=== PATIENT | female | born 1970 | race Caucasian/White ===

== ENCOUNTER 2016-08-05 07:28 | Day surgery (SDC) | payer OTHER ==
[2016-08-05 07:33] VITALS: TEMP 97.9
--- NOTE | 2016-08-05 07:37 | EDPHY ---
H & P Stated Complaint: Intermittent CP for "awhile",worse past 2 wks,under a lot of stress Time Seen by Provider: 08/05/16 07:37 - Personal History LMP (Females 10-55): 1-7 Days Ago Current Tetanus Diphtheria and Acellular Pertussis (TDAP): No - Medical/Surgical History Other PMH: neg per pt - Social History Smoking Status: Never smoked Constitutional: Initial Vital Signs Temperature (C) 36.6 C 08/05/16 07:29 Heart Rate 78 08/05/16 07:29 Respiratory Rate 18 08/05/16 07:29 Blood Pressure 180/113 H 08/05/16 07:29 O2 Sat (%) 98 08/05/16 07:29 O2 Delivery Mode Room Air Allergies/Adverse Reactions: No Known Allergies Allergy (Unverified 08/05/16 07:33) Home Medications: Medication Instructions Recorded NK [No Known Home Meds] 08/05/16 Medical Decision Making ED Course/Re-evaluation: CHIEF COMPLAINT: Chest pressure. HISTORY OF PRESENT ILLNESS: This is a 46-year-old otherwise healthy female who presents with chest pressure for the past few days. The pressure radiates through to her back (between the shoulder blades) and she has left upper arm soreness. The pain has been constant. She denies alleviating or provoking factors. She denies shortness of breath. She feels that she has had similar symptoms before but they have always resolved on their own. Her father had heart disease and had a heart attack at 42. She has been under a lot of personal stress lately. REVIEW OF SYSTEMS: A 10 point review of systems was performed and is negative with the exception of the elements mentioned in the history of present illness. PHYSICAL EXAM: HR, BP, O2 Sat, RR. Temp noted General Appearance: Alert, well hydrated, appropriate, and non-toxic appearing. Head: Atraumatic without scalp tenderness or obvious injury Eyes: Pupils equal, round, reactive to light and accommodation, EOMI, no trauma , no injection. Ears: Clear bilaterally, no perforation, normal landmarks Nose: Atraumatic, no rhinorrhea, clear. Throat: There is no erythema or exudates, no lesions, normal tonsils, mucus membranes moist. Neck: Supple, 2+ carotid upstroke, nontender, no lymphadenopathy. Respiratory: No retractions, no distress, no wheezes, and no accessory muscle use. Lungs are clear to auscultation bilaterally. Cardiovascular: Regular rate and rhythm, no murmurs, rubs, or gallops. Bilateral carotid, radial, dorsalis pedis, and posterior tibial pulses intact. Good capillary refill all extremities. Gastrointestinal: Abdomen is soft, nontender, non-distended, no masses, no rebound, no guarding, no peritoneal signs. Musculoskeletal: Normal active ROM of all extremities, atraumatic. Neurological: Alert, appropriate, and interactive. The patient has normal DTRs and non-focal cranial nerves, motor, sensory, and cerebellar exam. Skin: No rashes, good turgor, no nodules on palpation. Past medical history:Denies. Past surgical history:Denies. Family history:Father had a heart attack at 42. Social history:. DIAGNOSTICS/PROCEDURES/CRITICAL CARE TIME: The 12 lead EKG was interpreted by myself. See hard copy and/or "tracemaster" electronic copy for interpretation. Sinus rhythm, abnormal R wave progression. ST depression in V4. Study: PA and Lateral Chest X-ray Indication: Chest pain Results: I viewed the images myself on the PACS system. The radiologist interpretation per Dr. Ma is: Borderline cardiac silhouette enlargement. DIFFERENTIAL DIAGNOSIS: The differential diagnosis for the patient's chest pain included but was not limited to myocardial ischemia, pulmonary embolus, chest wall pain, pleural inflammation, and pulmonary infectious causes. MEDICAL DECISION MAKING: This is a 46-year-old female who presents with chest pressure for the past few days. This pressure radiates to between her shoulder blades and down her left arm. She has a significant family cardiac history as her father had a heart attack at age 42. Labs will be drawn including troponin. Troponin will be significantly sensitive as the patient has had a few days of unrelenting pain. An EKG was obtained that shows sinus rhythm and abnormal R-wave progression and ST depression in V4. I am concerned this could represent a posterior infarct. Aspirin 324mg PO administered. 0745: I spoke with Dr. Leija, cardiology. I have sent him the patient's EKG. He will establish care with the patient. 0752: Dr. Leija agrees the patient's EKG is abnormal. Stat echocardiogram ordered. Chest x-ray per radiology shows borderline cardiac silhouette enlargement. 0823: I spoke with echocardiogram gwen Nagel after echocardiogram. He has sent the images to Dr. Leija. 0830: I consulted with the cardiology PA in the ED. He will consult with the patient. Patient placed on Nitroglycerin IV drip. 0858: Dr. Leija planning to take the patient to the veterinary laboratory diagnostician at 0930. - Data Points Laboratory Results: Laboratory Results 08/05/16 07:41 08/05/16 07:41 08/05/16 08/05/16 08/05/16 07:41 07:41 07:41 WBC 7.95 10^3/uL 10^3/uL (3.80-9.50) RBC 5.75 10^6/uL H 10^6/uL (4.18-5.33) Hgb 15.6 g/dL g/dL (12.6-16.3) Hct 46.1 % % (38.0-47.0) MCV 80.2 fL L fL (81.5-99.8) MCH 27.1 pg L pg (27.9-34.1) MCHC 33.8 g/dL g/dL (32.4-36.7) RDW 14.6 % % (11.5-15.2) Plt Count 286 10^3/uL 10^3/uL (150-400) MPV 9.1 fL fL (8.7-11.7) Neut % (Auto) 63.3 % % (39.3-74.2) Lymph % (Auto) 25.7 % % (15.0-45.0) [place] % (Auto) 6.2 % % (4.5-13.0) Eos % (Auto) 2.9 % % (0.6-7.6) Baso % (Auto) 1.1 % % (0.3-1.7) Nucleat RBC Rel Count 0.0 % % (0.0-0.2) Absolute Neuts (auto) 5.04 10^3/uL 10^3/uL (1.70-6.50) Absolute Lymphs (auto) 2.04 10^3/uL 10^3/uL (1.00-3.00) Absolute Monos (auto) 0.49 10^3/uL 10^3/uL (0.30-0.80) Absolute Eos (auto) 0.23 10^3/uL 10^3/uL (0.03-0.40) Absolute Basos (auto) 0.09 10^3/uL 10^3/uL (0.02-0.10) Absolute Nucleated RBC 0.00 10^3/uL 10^3/uL (0-0.01) Immature Gran % 0.8 % % (0.0-1.1) Immature Gran # 0.06 10^3/uL 10^3/uL (0.00-0.10) PT 13.9 SEC SEC (12.0-15.0) INR 1.08 (0.83-1.16) APTT 30.6 SEC SEC (23.0-38.0) Sodium 141 mEq/L mEq/L (134-144) Potassium 3.8 mEq/L mEq/L (3.5-5.2) Chloride 109 mEq/L mEq/L (97-110) Carbon Dioxide 21 mEq/l L mEq/l (22-31) Anion Gap 11 mEq/L mEq/L (8-16) BUN 10 mg/dL mg/dL (7-23) Creatinine 0.8 mg/dL mg/dL (0.6-1.0) Estimated GFR > 60 Glucose 96 mg/dL mg/dL (70-100) Calcium 9.3 mg/dL mg/dL (8.5-10.4) Troponin I < 0.012 ng/mL ng/mL (0-0.034) NT-Pro-B Natriuret Pep 133 pg/mL H pg/mL (0-125) Departure - Departure Disposition: To OP Cath/Surgery Clinical Impression: Chest pain Qualifiers: Chest pain type: unspecified Qualified Code(s): R07.9 - Chest pain, unspecified Condition: Fair Referrals: NONE *PRIMARY CARE P,. [Primary Care Provider] - As per Instructions Report Scribed for: Arias Ramey Report Scribed by: Andrea Pang Date of Report: 08/05/16 Time of Report: 07:47
--- NOTE | 2016-08-05 07:44 | CPEKG ---
Heart Rate: 96 RR Interval: 625 P-R Interval: 180 QRSD Interval: 92 QT Interval: 356 QTC Interval: 450 P [place]: 29 QRS [place]: 11 T Wave [place]: 19 EKG Severity - ABNORMAL ECG - EKG Impression: SINUS RHYTHM EKG Impression: ABNRM R PROG, CONSIDER ASMI OR LEAD PLACEMENT Electronically Signed By: Arias Ramey 05-Aug-2016 14:37:01
[2016-08-05] MEDS ORDERED: ASPIRIN 81 MG CHEWABLE TAB ONE (07:45)
[2016-08-05 07:57] LABS: % IMMATURE GRANULYOCYTES 0.8 % (0.0-1.1); ABSOLUTE IMMATURE GRANULOCYTES 0.06 10^3/uL (0.00-0.10); ADD DIFF? NO; ADD MORPH? NO; ADD SCAN? NO; ATYPICAL LYMPHOCYTE FLAG 0 (0-99); FRAGMENT RBC FLAG 0 (0-99); HEMATOCRIT 46.1 % (38.0-47.0); HEMOGLOBIN 15.6 g/dL (12.6-16.3); LEFT SHIFT FLG 0 (0-99); LIPEMIA HEMOLYSIS FLAG 90 (0-99); MEAN CELL HEMOGLOBIN 27.1 pg (27.9-34.1); MEAN CELL HEMOGLOBIN CONCENTR. 33.8 g/dL (32.4-36.7); MEAN CELL VOLUME 80.2 fL (81.5-99.8); MEAN PLATELET VOLUME 9.1 fL (8.7-11.7); PLATELET CLUMPS FLAG 10 (0-99); PLATELET COUNT 286 10^3/uL (150-400); RED BLOOD CELL COUNT 5.75 10^6/uL (4.18-5.33); RED CELL DISTRIBUTION WIDTH 14.6 % (11.5-15.2)
[2016-08-05 08:22] LABS: INR 1.08 (0.83-1.16); PROTIME(PATIENT) 13.9 SEC (12.0-15.0)
[2016-08-05 08:23] LABS: APTT 30.6 SEC (23.0-38.0)
[2016-08-05] MEDS ORDERED: NITROGLYCERIN/D5W 50 MG/250 ML BOTTLE IV ONE (08:35)
[2016-08-05 08:36] LABS: TROPONIN I < 0.012 ng/mL (0-0.034)
[2016-08-05 08:39] LABS: ANION GAP 11 mEq/L (8-16); CALCIUM 9.3 mg/dL (8.5-10.4); CARBON DIOXIDE 21 mEq/l (22-31); CHLORIDE 109 mEq/L (97-110); CREATININE 0.8 mg/dL (0.6-1.0); GLOMERULAR FILTRATION RATE > 60; GLUCOSE 96 mg/dL (70-100); POTASSIUM 3.8 mEq/L (3.5-5.2); SODIUM 141 mEq/L (134-144)
[2016-08-05] MEDS ORDERED: ASPIRIN 81 MG CHEWABLE TAB PO ONE (08:45)
[2016-08-05] MEDS ORDERED: NITROGLYCERIN/DEXTROSE 250 ML IV SCH (08:50)
[2016-08-05] MEDS ORDERED: TEMAZEPAM 15 MG CAP PO PRN (09:02)
[2016-08-05] MEDS ORDERED: DIAZEPAM 5 MG TAB PO ONE (09:02)
[2016-08-05] MEDS ORDERED: NITROGLYCERIN 0.4 MG BTL SL PRN ×2 (09:02→10:14)
[2016-08-05] MEDS ORDERED: ACETAMINOPHEN 325 MG TAB PO PRN (09:02)
[2016-08-05] MEDS ORDERED: diphenhydrAMINE 25 MG CAP PO ONE (09:02)
[2016-08-05] MEDS ORDERED: ASPIRIN EC 325 MG TAB PO ONE (09:02)
[2016-08-05 09:06] VITALS: BP 157/104
--- NOTE | 2016-08-05 09:08 | PDCONSULT ---
Shredder Picker Note: 46 y/o F with 2-3 days of substernal chest pain with radiation to back. Seen an evaluated in ED. Discussed with Dr. Ramey and by phone with Dr. Leija who elects to take to wood and wood products labourer this am. Patient has consented verbally. Official consult will be put in later this am.
[2016-08-05] MEDS ORDERED: LIDOCAINE 1% 30 ML SDV ONE (09:11)
[2016-08-05 09:12] VITALS: PULSE 86; RESP 14
[2016-08-05] MEDS ORDERED: VERAPAMIL 5 MG/2 ML VIAL ONE (09:12)
[2016-08-05] MEDS ORDERED: MIDAZOLAM 2 MG/2 ML VIAL ONE ×2 (09:12→09:48)
[2016-08-05] MEDS ORDERED: HEPARIN 10,000 UNIT/10 ML MDV ONE (09:12)
[2016-08-05] MEDS ORDERED: fentaNYL 100 MCG/2 ML INJ ONE (09:12)
[2016-08-05 09:13] VITALS: O2SAT 97
[2016-08-05] MEDS ORDERED: IOPAMIDOL (ISOVUE-370) 150 ML BTL IV ONE (09:13)
[2016-08-05 09:41] LABS: CHOLESTEROL 189 mg/dL (140-200); CHOLESTEROL/HDL RATIO 4.02 RATIO (1.00-4.44); HIGH DENSITY LIPOPROTEIN 47 mg/dL (40-95); LDL/HDL RATIO 2.34 RATIO (1.00-3.22); LOW DENSITY LIPOPROTEIN 110 mg/dL (70-100); NON-HIGH DENSITY LIPOPROTEIN 142 mg/dL (90-129); TRIGLYCERIDE 160 mg/dL (35-135); VERY LOW DENSITY LIPOPROTEINS 32 mg/dL (8-25)
--- NOTE | 2016-08-05 09:45 | SUROPNOTE ---
[facility] Operative Report - Surgery Date of Procedure: 08/05/16 Indication: This patient is a 46 year old woman, with strong family history of coronary disease, presenting to the emergency department today with 2-3 days of substernal chest pressure radiating to her back and left shoulder to the elbow. The pain has been constant, but is mild in severity. Cole cardiovascular class IV angina. EKG in the emergency department shows poor R wave progression and ST depression in V4. Troponin is negative. Her chest pain was nitroglycerin responsive with nitroglycerin drip. Her presentation is associated with hypertension, 160-190/109 in the emergency department. She has no known history of hypertension, however has not seen a doctor in quite some time. She denies history of hyperlipidemia or diabetes to her knowledge. No stress testing was performed secondary to resting chest pain, which was nitroglycerin responsive. Urgent left heart catheterization indicated secondary to unstable angina. Procedures performed: 1. Left heart catheterization with left ventricular and selective coronary angiography. Description of procedure: Description, risks, benefits and alternatives were discussed in detail. Informed consent was obtained. The patient was brought to the catheterization laboratory where a timeout was performed. The right wrist was sterilely prepped and draped. 2% lidocaine utilized for local anesthetic. A 5/6-Syrian slender hemostatic sheath placed right radial artery utilizing micropuncture technique. Intraarterial verapamil and intravenous heparin was administered. Diagnostic coronary angiography performed with 6-Syrian, Nivia left-3.5 and Nivia right -4 catheter. All catheters were passed over a 0.035 guidewire. Pigtail catheter was then utilized for left heart catheterization and left ventricular angiography. Arterial sheath was removed and TR band was placed. Findings: 1. Hemodynamics: Aortic pressure 109/79, mean of 84, left ventricular pressure 122/6/11 end-diastolic. There was no significant pull back gradient across the aortic valve. 2. Left ventricle: The left ventricle appears normal in size. Left ventricle is normal shape. Segmental wall motion is normal with an ejection fraction of 65 %. There are no filling defects or significant mitral regurgitation. The aortic root and ascending aorta appears normal, there is no dissection or aneurysm formation. 3. Coronary angiography: Left main: The left main is a large trifurcating vessel, free of disease. 4. Left anterior descending: This is a moderately large vessel continuing around the apex. Gives rise to a small first and moderately large mid diagonal branch. The LAD contains very minimal luminal irregularities. 5. Circumflex: The circumflex gives rise to a very large bifurcating first obtuse marginal branch. There is a small distal AV groove circumflex that gives off a small posterolateral. Minimal irregularities. 6. Ramus intermedius: Moderate size vessel with very minimal luminal irregularities. 7. Right coronary: Large dominant vessel. Very large PDA extending to the apex , large posterolateral. There is vessel tortuosity consistent with hypertension , but otherwise unremarkable. Free of disease. Overall Impression: 1. Very minimal coronary artery disease by angiography, with no significant stenosis. 2. Hypertension 3. Non-cardiac chest pain Plan: 1. Medical management of hypertension and risk factor modification. Check fasting lipid panel. 2. Establish care with primary care provider. Portions of this report were documented by a medical billing associate. I have reviewed this report and agree with the documentation. Report scribed for Dr. Bernardo Leija. Report scribed by Sofia Benavides.
--- NOTE | 2016-08-05 09:55 | PDCPHP ---
History and Physical Chief Complaint: Chest pressure - History of Present Illness This patient is a 46 year old woman, with strong family history of coronary disease, presenting with 2-3 days of constant, substernal chest pressure, radiating through to her back and the left shoulder to the elbow. The pain is mild in severity, rated 1/10. She denies aggravation by exertion or eating. The pain is not pleuritic in nature. She endorses association with nausea, however is unsure if this is attributed to recent high levels of stress. The patient became concerned about the constant nature of her symptoms and presented to the emergency department for evaluation. In the emergency department, she is found to be hypertensive, 160-190/109. She denies history of hypertension, however has not been seen by a health care provider in quite some time. Chest pressure was responsive to nitroglycerin drip in the emergency department. EKG in the emergency department demonstrates poor R wave progression and ST depression in V4. Cardiac risk factors: To her knowledge, no history of hypertension, hyperlipidemia, or diabetes. She is a lifelong non-smoker. Strong family history of coronary disease includes her father with his first IL at 42 and two brothers with a history of hypertension and coronary disease. Past medical history: Obesity Past surgical history: None Social history: The patient is . Her was diagnosed with cancer one month ago, which has attributed to high level of stress in her life the last month. She does not have any children. 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 She is a lifelong non-smoker. She denies any drug or alcohol use. She has not exercised in approximately 1.5 years, but has lost 20 pounds in the last three months by dieting. Cardiac Risk Factors: family history of premature CAD Timing/Duration: Days Severity: mild Location: substernal Activities at Onset: rest Modifying Factors: improves with: nitroglycerin Associated Symptoms: nausea/vomiting (nausea, no vomiting) History Information - Allergies/Home Medication List Allergies/Adverse Reactions: No Known Allergies Allergy (Unverified 08/05/16 07:33) Home Medications: NK [No Known Home Meds] 08/05/16 [Last Taken Unknown] - Social History Smoking Status: Never smoked Review of Systems ROS: 10pt was reviewed & negative except for what was stated in HPI & below Physical Exam Temp Pulse Resp BP Pulse Ox 97.9 F 86 14 157/104 H 97 08/05/16 07:29 08/05/16 09:12 08/05/16 09:12 08/05/16 09:12 08/05/16 09:13 O2 (L/minute) 2 Constitutional: no apparent distress, obese Eyes: PERRL Ears, Nose, Mouth, Throat: moist mucous membranes Cardiovascular: regular rate and rhythym, no murmur, rub, or gallop, pulses symmetric bilaterally (Radial pulses 2+ bilaterally. Normal Isma's test.), No JVD, No carotid bruit, No edema Peripheral Pulses: 2+: dorsalis-pedis (R), dorsalis-pedis (L) Respiratory: no respiratory distress, no rales or rhonchi, clear to auscultation Gastrointestinal: soft, non-tender abdomen, no palpable masses Skin: normal color Musculoskeletal: other (Sternal chest wall tenderness to palpation. ), No asymmetric calves Neurologic: AAOx3 Psychiatric: interacting appropriately, anxious Lab Data & Imaging Review 08/05/16 07:41 08/05/16 07:41 WBC 7.95 10^3/uL (3.80-9.50) 08/05/16 07:41 RBC 5.75 10^6/uL (4.18-5.33) H 08/05/16 07:41 Hgb 15.6 g/dL (12.6-16.3) 08/05/16 07:41 Hct 46.1 % (38.0-47.0) 08/05/16 07:41 MCV 80.2 fL (81.5-99.8) L 08/05/16 07:41 MCH 27.1 pg (27.9-34.1) L 08/05/16 07:41 MCHC 33.8 g/dL (32.4-36.7) 08/05/16 07:41 RDW 14.6 % (11.5-15.2) 08/05/16 07:41 Plt Count 286 10^3/uL (150-400) 08/05/16 07:41 MPV 9.1 fL (8.7-11.7) 08/05/16 07:41 Neut % (Auto) 63.3 % (39.3-74.2) 08/05/16 07:41 Lymph % (Auto) 25.7 % (15.0-45.0) 08/05/16 07:41 [place] % (Auto) 6.2 % (4.5-13.0) 08/05/16 07:41 Eos % (Auto) 2.9 % (0.6-7.6) 08/05/16 07:41 Baso % (Auto) 1.1 % (0.3-1.7) 08/05/16 07:41 Nucleat RBC Rel Count 0.0 % (0.0-0.2) 08/05/16 07:41 Absolute Neuts (auto) 5.04 10^3/uL (1.70-6.50) 08/05/16 07:41 Absolute Lymphs (auto) 2.04 10^3/uL (1.00-3.00) 08/05/16 07:41 Absolute Monos (auto) 0.49 10^3/uL (0.30-0.80) 08/05/16 07:41 Absolute Eos (auto) 0.23 10^3/uL (0.03-0.40) 08/05/16 07:41 Absolute Basos (auto) 0.09 10^3/uL (0.02-0.10) 08/05/16 07:41 Absolute Nucleated RBC 0.00 10^3/uL (0-0.01) 08/05/16 07:41 Immature Gran % 0.8 % (0.0-1.1) 08/05/16 07:41 Immature Gran # 0.06 10^3/uL (0.00-0.10) 08/05/16 07:41 PT 13.9 SEC (12.0-15.0) 08/05/16 07:41 INR 1.08 (0.83-1.16) 08/05/16 07:41 APTT 30.6 SEC (23.0-38.0) 08/05/16 07:41 Sodium 141 mEq/L (134-144) 08/05/16 07:41 Potassium 3.8 mEq/L (3.5-5.2) 08/05/16 07:41 Chloride 109 mEq/L (97-110) 08/05/16 07:41 Carbon Dioxide 21 mEq/l (22-31) L 08/05/16 07:41 Anion Gap 11 mEq/L (8-16) 08/05/16 07:41 BUN 10 mg/dL (7-23) 08/05/16 07:41 Creatinine 0.8 mg/dL (0.6-1.0) 08/05/16 07:41 Estimated GFR > 60 08/05/16 07:41 Glucose 96 mg/dL (70-100) 08/05/16 07:41 Calcium 9.3 mg/dL (8.5-10.4) 08/05/16 07:41 Troponin I < 0.012 ng/mL (0-0.034) 08/05/16 07:41 NT-Pro-B Natriuret Pep 133 pg/mL (0-125) H 08/05/16 07:41 Triglycerides 160 mg/dL (35-135) H 08/05/16 07:41 Cholesterol 189 mg/dL (140-200) 08/05/16 07:41 Cholesterol Risk Factr 0.8 (0.2-1.0) 08/05/16 07:41 LDL Cholesterol, Calc 110 mg/dL (70-100) H 08/05/16 07:41 LDL Risk Factor 0.8 (0.2-1.0) 08/05/16 07:41 VLDL Cholesterol 32 mg/dL (8-25) H 08/05/16 07:41 Non-HDL Cholesterol 142 mg/dL (90-129) H 08/05/16 07:41 HDL Cholesterol 47 mg/dL (40-95) 08/05/16 07:41 LDL/HDL Ratio 2.34 RATIO (1.00-3.22) 08/05/16 07:41 Cholesterol/HDL Ratio 4.02 RATIO (1.00-4.44) 08/05/16 07:41 Chest X-Ray results: other (borderline enlarged cardiac sil[place]ouette per radologist) EKG Interpretation: Positive for: other (Poor R wave progression), ST depression (V4) Assessment and Plan Assessment: 1. Chest pain. 2-3 days of resting substernal chest pressure radiating to the back and left shoulder. Nitroglycerin responsive in the emergency department. Considering family history for coronary disease and abnormal EKG findings, concern for class IV, unstable angina. Atypical characteristics include no aggravation with exertion and sternal chest wall tenderness to palpation on exam. 2. Abnormal EKG. EKG in the emergency department demonstrates poor R wave progression and ST depression in V4. 3. Echocardiogram demonstrates mild LVH, mild diastolic dysfunction, and LVEF of 68%. 4. Strong family history of premature coronary disease. Her father had his first IL at 42 years old, he is from heart disease. Her two brothers have a history of hypertension and coronary disease. 5. Hypertension. Blood pressure 160-190s/109 in the emergency department today. The patient holds no previous diagnosis of coronary disease. 6. No known history of hyperlipidemia or diabetes. 7. Obesity. 20 pound weight loss in the last three months, achieved through dieting. Plan: 1. Left heart catheterization urgently at 9:30am this morning. Portions of this report were documented by a medical staff coordinator. I have reviewed this report and agree with the documentation. Report scribed for Dr. Bernardo Leija. Report scribed by Sofia Benavides.
[2016-08-05] MEDS ORDERED: ONDANSETRON 4 MG/2 ML VIAL IVP PRN (10:14)
[2016-08-05] MEDS ORDERED: OXYCODONE/APAP 5/325 TAB PO PRN (10:14)
[2016-08-05] MEDS ORDERED: HYDROCODONE/APAP 5/325 TAB PO PRN (10:14)
[2016-08-05] MEDS ORDERED: ATROPINE SULFATE 1 MG/10 ML SYR IVP PRN (10:14)
== END 2016-08-05 14:45 | disposition home or self-care (01) ==
LOC: FCATH 09:29
PROVIDERS: ATTEND Internal Medicine Interventional Cardiology
PROC: B2111ZZ Fluoroscopy of Multiple Coronary Arteries using Low Osmolar Contrast (ICD-10-PCS; principal; 2016-08-05)
PROC: B2151ZZ Fluoroscopy of Left Heart using Low Osmolar Contrast (ICD-10-PCS; principal; 2016-08-05)
PROC: 4A023N7 Measurement of Cardiac Sampling and Pressure, Left Heart, Percutaneous Approach (ICD-10-PCS; principal; 2016-08-05)
DX: R07.89 Other chest pain (principal); I10 Essential (primary) hypertension; R94.31 Abnormal electrocardiogram [ECG] [EKG]; Z82.49 Family history of ischemic heart disease and other diseases of the circulatory system; E66.9 Obesity, unspecified
CPT/HCPCS: J1644; J2250; J3010; Q9967

== ENCOUNTER → 2016-08-15 | Outpatient (CLI) | payer OTHER | LOC: FIMAGING 11:24 | DX: Z12.31 Encounter for screening mammogram for malignant neoplasm of breast (principal) | CPT/HCPCS: G0202 ==

== ENCOUNTER → 2016-08-25 | Outpatient (CLI) | payer OTHER | LOC: FIMAGING 14:25 | PROVIDERS: ATTEND Family Medicine | DX: Z12.39 Encounter for other screening for malignant neoplasm of breast (principal); R92.0 Mammographic microcalcification found on diagnostic imaging of breast | CPT/HCPCS: G0206 ==